=== PATIENT | female | born 1990 | race African-American/Black ===

== ENCOUNTER 2016-06-27 02:52 | Inpatient (IN) | payer OTHER ==
[2016-06-27 03:48] LABS: APPEARANCE,URINE CLEAR; BILIRUBIN,URINE NEGATIVE (NEGATIVE); GLUCOSE, URINE NEGATIVE (NEGATIVE); KETONES,URINE 20 mg/dL (NEGATIVE); LEUKOCYTE ESTERASE,URINE TRACE (NEGATIVE); NITRITE,URINE NEGATIVE (NEGATIVE); PROTEIN,URINE NEGATIVE (NEGATIVE); URINE SPECIFIC GRAVITY 1.013; UROBILINOGEN,URINE NEGATIVE mg/dL (<2.0)
[2016-06-27] MEDS ORDERED: PENICILLIN G-K 5 MILLION UNIT VIAL ONE (03:56)
[2016-06-27] MEDS ORDERED: PENICILLIN G POTASSIUM 5,000,000 UNIT in DEXTROSE 5%-WATER 100 ML IV ONE (04:00)
[2016-06-27] MEDS: RINGERS SOLUTION,LACTATED 1,000 ML IV PRN ×2 (04:18→05:32)
[2016-06-27 04:41] LABS: ABSOLUTE EOSINOPHILS # (AUTO) 0.1 10^3/uL (0.0-0.6); ABSOLUTE MONOCYTES (AUTO) 0.7 10^3/uL (0.1-1.4); ABSOLUTE NEUT (AUTO) 7.6 10^3/uL (1.7-8.2); BASOPHILS % (AUTO) 0.1 % (0-2); EOSINOPHILS % (AUTO) 1.5 % (0-6); HEMATOCRIT 33.2 % (36.0-47.0); HGB HCT DIFFERENCE -0.2; LYMPHOCYTES % (AUTO) 10.3 % (13-45); MEAN CORPUSCULAR HGB CONC 33.2 g/dL (32.0-36.0); MEAN CORPUSCULAR VOLUME 88 fl (80-97); MONOCYTES % (AUTO) 7.1 % (3-13); RED BLOOD COUNT 3.79 10^6/uL (3.72-5.28); RED CELL DISTRIBUTION WIDTH 13.8 % (11.5-14.0); WHITE BLOOD COUNT 9.3 10^3/uL (4.0-10.5)
[2016-06-27] MEDS ORDERED: LIDOCAINE 1% INJ-PF (10 MG/ML) 30 ML SDV ONE (05:12)
[2016-06-27] MEDS ORDERED: MISOPROSTOL 0.2 MG TABLET ONE (05:12)
[2016-06-27] MEDS ORDERED: OXYTOCIN/NORMAL SALINE 20 UNIT/1,000 ML RTUINJ ONE (05:13)
[2016-06-27 05:20] LABS: URINE BARBITURATES SCREEN NEGATIVE; URINE METHADONE SCREEN NEGATIVE; URINE OPIATES LOW NEGATIVE; URINE PHENCYCLIDINE SCREEN NEGATIVE
[2016-06-27] MEDS ORDERED: NALBUPHINE HCL INJ 10 MG/1 ML AMPULE ONE (05:29)
[2016-06-27] MEDS ORDERED: DIPHENHYDRAMINE HCL 25 MG CAPSULE PO PRN (06:01)
[2016-06-27] MEDS ORDERED: PSEUDOEPHEDRINE HCL 30 MG TABLET PO PRN (06:01)
[2016-06-27] MEDS ORDERED: MAGNESIUM HYDROXIDE SUSP 30 ML UDCUP PO PRN (06:01)
[2016-06-27] MEDS ORDERED: OXYTOCIN/NORMAL SALINE 1,000 ML IV PRN (06:01)
[2016-06-27] MEDS ORDERED: DIPH/PERTUSS(ACELL)/TETANUS VAC/PF 0.5 ML SYR (>=10YO) IM PRN (06:01)
[2016-06-27] MEDS ORDERED: GLYCERIN/WITCH HAZEL LEAF 1 EACH MED..PAD TP PRN (06:01)
[2016-06-27] MEDS ORDERED: PROMETHAZINE HCL 25 MG SUPP.RECT PR PRN (06:01)
[2016-06-27] MEDS ORDERED: MEASLES,MUMPS&RUBELLA VACC/PF 0.5 ML VIAL SUBCUT PRN (06:01)
[2016-06-27] MEDS ORDERED: ZOLPIDEM TARTRATE 5 MG TABLET PO PRN (06:01)
[2016-06-27] MEDS ORDERED: ACETAMINOPHEN WITH CODEINE #3 TABLET PO PRN ×2 (06:01)
[2016-06-27] MEDS ORDERED: PROMETHAZINE HCL 25 MG TABLET PO PRN (06:01)
[2016-06-27] MEDS ORDERED: PROMETHAZINE HCL INJ 25 MG/1 ML VIAL IV PRN (06:01)
[2016-06-27] MEDS ORDERED: DIBUCAINE 1% OINTMENT 28 GM TP PRN (06:01)
[2016-06-27] MEDS ORDERED: BENZOCAINE/MENTHOL AEROSOL SPRAY 56 ML TOP PRN (06:01)
[2016-06-27] MEDS ORDERED: ACETAMINOPHEN 650 MG SUPP.RECT PR PRN (06:01)
[2016-06-27] MEDS ORDERED: NA PHOS,M-B/NA PHOS,DI-BA (ADULT) 133 ML ENEMA PR PRN (06:01)
[2016-06-27] MEDS ORDERED: ACETAMINOPHEN WITH CODEINE #3 TABLET ONE (06:11)
[2016-06-27] MEDS ORDERED: PENICILLIN G POTASSIUM 2,500,000 UNIT in DEXTROSE 5%-WATER 50 ML IV SCH (08:01)
--- NOTE | 2016-06-27 08:01 | L&D Flow Sheet ---
LD Flowsheet Datetime Report Generated by CPN: 06/27/2016 08:00 Datetime: 06/27/2016 07:35 NBP Sys/Chen/Mean (mmHg): 117 (QS system process) : 61 (QS system process) : 82 (QS system process) Pulse: 75 (QS system process) Datetime: 06/27/2016 07:24 Communication Comments: report received from C. Wyocena, RN (Radha Abdias, RN) Datetime: 06/27/2016 07:20 NBP Sys/Chen/Mean (mmHg): 107 (QS system process) : 56 (QS system process) : 79 (QS system process) Pulse: 70 (QS system process) Datetime: 06/27/2016 07:16 Stage of : Recovery (Crystal Jenelle, RN) Datetime: 06/27/2016 07:05 NBP Sys/Chen/Mean (mmHg): 120 (QS system process) : 57 (QS system process) : 81 (QS system process) Pulse: 73 (QS system process) Datetime: 06/27/2016 07:00 Stage of : Recovery (Crystal Wyocena, RN) Datetime: 06/27/2016 06:50 NBP Sys/Chen/Mean (mmHg): 122 (QS system process) : 59 (QS system process) : 82 (QS system process) Pulse: 76 (QS system process) Datetime: 06/27/2016 06:45 Stage of : Recovery (Crystal Jenelle, RN) Temperature (F): 98.3 (Crystal Wyocena, RN) Temperature (C): 36.8 (QS system process) Temperature Route: Oral (Crystal Wyocena, RN) Pain Scale: 2 (Crystal Wyocena, RN) Pain Presence: Intermittent (Crystal Jenelle, RN) Pain Type: Burning (Crystal Wyocena, RN) Pain Location: Perineum (Crystal Wyocena, RN) Pain Goal: 1 (Crystal Wyocena, RN) Datetime: 06/27/2016 06:35 NBP Sys/Chen/Mean (mmHg): 129 (QS system process) : 66 (QS system process) : 92 (QS system process) Pulse: 84 (QS system process) Datetime: 06/27/2016 06:30 Stage of : Recovery (Crystal Jenelle, RN) Pain Scale: 2 (Crystal Wyocena, RN) Pain Presence: Intermittent (Crystal Wyocena, RN) Pain Type: Burning (Crystal Wyocena, RN) Pain Location: Perineum (Crystal Wyocena, RN) Pain Goal: 1 (Crystal Wyocena, RN) Pain Relief Measures: Pain Medication Given; Comfort Measures (Crystal Wyocena, RN) Datetime: 06/27/2016 06:23 NBP Sys/Chen/Mean (mmHg): 130 (QS system process) : 64 (QS system process) : 88 (QS system process) Pulse: 85 (QS system process) Datetime: 06/27/2016 06:20 NBP Sys/Chen/Mean (mmHg): 134 (QS system process) : 93 (QS system process) : 104 (QS system process) Pulse: 44 (QS system process) Datetime: 06/27/2016 06:15 Stage of : Recovery (Crystal Wyocena, RN) Datetime: 06/27/2016 06:11 Stage of : Recovery (Crystal Jenelle, RN) Analgesics/Sedatives: Tylenol (mg) @ (Annotations: 650 mg PO ) (Crystal Jenelle, RN) Datetime: 06/27/2016 06:08 Pain Scale: 4 (Crystal Wyocena, RN) Pain Presence: Intermittent (Crystal Wyocena, RN) Pain Type: Burning (Crystal Jenelle, RN) Pain Goal: 1 (Crystal Jenelle, RN) Pain Relief Measures: Comfort Measures (Crystal Wyocena, RN) Pain Coping: Requesting Pain Medication or Epidural (Crystal Wyocena, RN) Datetime: 06/27/2016 06:01 NBP Sys/Chen/Mean (mmHg): 130 (QS system process) : 68 (QS system process) : 92 (QS system process) Pulse: 86 (QS system process) Datetime: 06/27/2016 05:53 Stage of : Recovery (Crystal Jenelle, RN) NBP Sys/Chen/Mean (mmHg): 126 (QS system process) : 65 (QS system process) : 87 (QS system process) Pulse: 82 (QS system process) Pain Scale: 2 (Crystal Wyocena, RN) Pain Presence: Intermittent (Crystal Jenelle, RN) Pain Type: Burning; Ache (Crystal Wyocena, RN) Pain Location: Perineum (Crystal Wyocena, RN) Pain Goal: 1 (Crystal Wyocena, RN) Pain Relief Measures: Comfort Measures (Crystal Jenelle, RN) Datetime: 06/27/2016 05:48 Stage of : Labor (Crystal Jenelle, RN) Stage 2 Comments: Placenta delivery. (Crystal Wyocena, RN) Datetime: 06/27/2016 05:43 NBP Sys/Chen/Mean (mmHg): 122 (QS system process) : 62 (QS system process) : 84 (QS system process) Pulse: 68 (QS system process) LaborFlag: Labor (QS system process) Datetime: 06/27/2016 05:40 Stage of : Labor (Crystal Jenelle, RN) Stage 2 Comments: Vaginal delivery of viable baby girl. (Crystal Wyocena, RN) Datetime: 06/27/2016 05:33 NBP Sys/Chen/Mean (mmHg): 125 (QS system process) : 92 (QS system process) : 103 (QS system process) Pulse: 84 (QS system process) LaborFlag: Labor (QS system process) Datetime: 06/27/2016 05:32 Dilatation (cm): 9.5 (Carey Almanzar RN) Effacement (%): 100 (Carey Almanzar, RN) Station: 2 (Carey Almanzar RN) Exam by: Dr. Ponce (Carey Almanzar RN) Membrane Status: Ruptured (Carey Almanzar, RN) Membranes Rupture Method: Artificial (Carey Wyocena, RN) Amniotic Fluid Color: Clear (Crystal Jenelle, RN) Amniotic Fluid Amount: Small (Crystal Wyocena, RN) Datetime: 06/27/2016 05:31 Communication: Provider at Bedside (Crystal Jenelle, RN) Datetime: 06/27/2016 05:15 Monitor Mode: External; Palpation (Crystal Wyocena, RN) Frequency (min): 3-3.5 (Crystal Wyocena, RN) Quality: Moderate to Strong (Crystal Wyocena, RN) Duration (sec): 60 (Crystal Wyocena, RN) Duration Criteria: Less than Two 120 Second Contractions (Crystal Jenelle, RN) Resting Tone (Palpate): Relaxed (Crystal Wyocena, RN) Monitor Mode: External US (Crystal Jenelle, RN) FHR Baseline Rate : 145 (Crystal Wyocena, RN) Variability: Moderate 6-25 bpm (Crystal Jenelle, RN) Patient Position/Activity: Left Lateral (Crystal Wyocena, RN) Datetime: 06/27/2016 05:12 Temperature (F): 98.3 (Crystal Jenelle, RN) Temperature (C): 36.8 (QS system process) LaborFlag: Labor (QS system process) Datetime: 06/27/2016 05:06 Dilatation (cm): 6.5 (Carey Almanzar RN) Effacement (%): 90 (Carey Almanzar, ARUN) Station: -1 (Carey Almanzar RN) Exam by: Brandy Almanzar RN (Carey Almanzar RN) Vaginal Bleeding: None (Carey Almanzar RN) Cervix, Position: Anterior (Carey Almanzar, RN) Datetime: 06/27/2016 05:05 Nausea/Vomiting: Present (Carey Almanzar, ARUN) Datetime: 06/27/2016 05:02 NBP Sys/Chen/Mean (mmHg): 123 (QS system process) : 60 (QS system process) : 82 (QS system process) Pulse: 86 (QS system process) LaborFlag: Labor (QS system process) Datetime: 06/27/2016 05:00 Monitor Mode: External; Palpation (Crystal Wyocena, RN) Frequency (min): 3-4 (Crystal Jenelle, RN) Quality: Moderate to Strong (Crystal Wyocena, RN) Duration (sec): 50-80 (Crystal Jenelle, RN) Duration Criteria: Less than Two 120 Second Contractions (Crystal Jenelle, RN) Resting Tone (Palpate): Relaxed (Crystal Jenelle, RN) Monitor Mode: External US (Crystal Jenelle, RN) Monitor Interventions for FHR: Ultrasound Adjusted (Crystal Wyocena, RN) FHR Baseline Rate : 145 (Crystal Wyocena, RN) Variability: Moderate 6-25 bpm (Crystal Jenelle, RN) Patient Position/Activity: Left Lateral (Crystal Jenelle, RN) Datetime: 06/27/2016 04:45 Monitor Mode: External; Palpation (Crystal Wyocena, RN) Frequency (min): 3-5 (Crystal Wyocena, RN) Quality: Moderate to Strong (Crystal Wyocena, RN) Duration (sec): 50-90 (Crystal Jenelle, RN) Duration Criteria: Less than Two 120 Second Contractions (Crystal Jenelle, RN) Resting Tone (Palpate): Relaxed (Crystal Wyocena, RN) Monitor Mode: External US (Crystal Jenelle, RN) FHR Baseline Rate : 140 (Crystal Wyocena, RN) Variability: Moderate 6-25 bpm (Crystal Wyocena, RN) Accelerations: 15X15 (Crystal Wyocena, RN) Patient Position/Activity: Left Lateral (Crystal Jenlele, RN) Datetime: 06/27/2016 04:30 Monitor Mode: External; Palpation (Crystal Jenelle, RN) Frequency (min): 3-6 (Crystal Wyocena, RN) Quality: Moderate (Crystal Wyocena, RN) Duration (sec): 40-90 (Crystal Wyocena, RN) Duration Criteria: Less than Two 120 Second Contractions (Crystal Jenelle, RN) Resting Tone (Palpate): Relaxed (Crystal Wyocena, RN) Monitor Mode: External US (Crystal Wyocena, RN) FHR Baseline Rate : 140 (Crystal Wyocena, RN) Variability: Moderate 6-25 bpm (Carey Jenelle, RN) Accelerations: 10X10 (Carey Nicholasergrass, RN) Patient Position/Activity: Left Lateral; Semi-Fowlers (Carey Nicholasergrass, RN) I/O Interventions: Up to BR (Crystal Wyocena, RN) Datetime: 06/27/2016 04:09 Antibiotics: Start Antibiotics; Penicillin IV (Units) @ 5,000,000 (Carey Almanzar RN) IV/Blood Work: IV Started; IV Bolus Started (Carey Almanzar, RN) Patient Care Comments: 18 G L AC (Carey Almanzar, RN) Datetime: 06/27/2016 03:59 Frequency (min): 3.5-6 (Carey Nicholasergrass, RN) Duration (sec): 50-90 (Carey Nicholasergrass, RN) Monitor Mode: External US (Carey Almanzar, RN) Monitor Interventions for FHR: Ultrasound Adjusted (Carey Almanzar, RN) FHR Baseline Rate : 135 (Carey Jenelle, RN) Datetime: 06/27/2016 03:46 Stage of : Labor (Carey Almanzar RN) Strip Reviewed by: Brandy Almanzar RN (Carey Almanzar RN) Communication: RN at Bedside; RN Reviewed Strip; Provider Orders Received (Carey Almanzar RN) Provider Notified (Name): Fermin (Carey Almanzar RN) Notification Reason: Status Update; Status; Labor Status; Membrane Status; Uterine Activity (Carey Almanzar RN) Datetime: 06/27/2016 03:39 Dilatation (cm): 4.0 (Carey Almanzar RN) Effacement (%): 80 (Carey Almanzar RN) Station: -2 (Carey Almanzar RN) Exam by: Brandy Almanzar RN (Carey Almanzar RN) Vaginal Bleeding: None (Carey Almanzar RN) Cervix, Consistency: Soft (Carey Almanzar RN) Cervix, Position: Midposition (Carey Almanzar RN) Datetime: 06/27/2016 03:25 NBP Sys/Chen/Mean (mmHg): 123 (QS system process) : 69 (QS system process) : 90 (QS system process) Pulse: 76 (QS system process) Respirations: 18 (Crystal Jenelle, RN) LaborFlag: OB Triage (QS system process) Datetime: 06/27/2016 03:20 Monitor Mode: External; Palpation (Crystal Jenelle, RN) Frequency (min): 7 (Crystal Jenelle, RN) Quality: Moderate (Crystal Wyocena, RN) Duration (sec): 90 (Crystal Wyocena, RN) Duration Criteria: Less than Two 120 Second Contractions (Crystal Wyocena, RN) Resting Tone (Palpate): Relaxed (Crystal Jenelle, RN) Monitor Mode: External US (Crystal Jenelle, RN) FHR Baseline Rate : 140 (Crystal Wyocena, RN) Variability: Moderate 6-25 bpm (Crystal Wyocena, RN) Accelerations: 15X15 (Crystal Wyocena, RN) Patient Position/Activity: Left Lateral; Semi-Fowlers (Crystal Wyocena, RN) I/O Interventions: Clear Liquids Given (Carey Almanzar RN) Datetime: 06/27/2016 02:59 Stage of : OB Triage (Carey Almanzar RN) Monitor Interventions for UA: [place] Adjusted (Carey Almanzar RN) Frequency (min): Pt reports every minute (Carey Almanzar RN) Monitor Mode: External US (Carey Almanzar RN) Pain Scale: 3 (Carey Almanzar RN) Pain Presence: Intermittent (Carye Almanzar RN) Pain Type: Contraction (Carey Almanzar RN) Pain Location: Abdomen (Carey Almanzar RN) Pain Goal: 1 (Carey Almanzar RN) Pain Relief Measures: Comfort Measures (Carey Almanzar RN) Pain Coping: Talking Through Contractions (Carey Almanzar RN) Vaginal Bleeding: None (Carey Almanzar RN) Level of Consciousness: Fully Conscious (Carey Almanzar RN) DTR's/Clonus: DTRs 1+; No Clonus (Carey Almanzar RN) Headache: Denies (Carey Almanzar RN) Breath Sounds, Right: Clear and Equal (Carey Almanzar RN) Nausea/Vomiting: Denies (Carey Almanzar RN) RUQ Epigastric Pain: Denies (Carey Almanzar RN) Instructional Method: Verbal (Carey Almanzar RN) Plan of Care: Plan of Care Discussed (Carey Almanzar RN) Unit Routine: [place] to Room; Call Connor; Bed; Visiting Policy (Carye Almanzar RN) Labor/Induction: Labor Stages (Carey Almanzar RN) Pain Management: Comfort Measures (Carey Almanzar RN) PTL/PROM: Expected Outcomes (Carey Almanzar RN) LaborFlag: OB Triage (QS system process) Datetime: 06/27/2016 02:53 Membranes Ruptured Date/Time: 06/27/2016 05:32 (Carey Almanzar RN) Amniotic Fluid Odor: Normal (Carey Almanzar RN)
--- NOTE | 2016-06-27 08:11 | Delivery Summary ---
Del Sum A-C Datetime Report Generated by CPN: 06/27/2016 08:10 ADMISSION DATA Chief Complaint: Uterine Contractions Indication for Induction: Not Applicable Admission Impression: , Intrauterine Admit Provider Comments: efw 6-7 lbs DELIVERY PERSONNEL Delivery Doctor:: Silvia Christensen MD Labor and Delivery Nurse:: Carey Almanzar RN Labor and Delivery Nurse:: Ibis Ann RN Ob Gyn Physician Assistant/ENVELOPE PRESS OPERATOR: Kennedy Rowley, ENVELOPE PRESS OPERATOR MATERNAL INFORMATION Delivery Anesthesia: None Medications After Delivery: Pitocin Drip 20 Units/1000ml NSS Estimated Blood Loss (ml): 200 Maternal Complications: None LABOR SUMMARY EDC: 07/25/2016 00:00 No. Babies in Womb: 1 Attempted: No Labor Anesthesia: None LABOR INFORMATION Reason for Induction: Not Applicable Onset of Labor: 06/27/2016 01:30 Complete Dilatation: 06/27/2016 05:35 Oxytocin: N/A Group B Beta Strep: positive Antibiotics # of Doses: 1 Antibiotics Time of Last Dose: 0409 Name of Antibiotic Given: PCN Steroids Given: None Reason Steroids Not Administered: Not Applicable MEMBRANES Membranes Rupture Method: Artificial Rupture of Membranes: 06/27/2016 05:32 Length of Rupture (hr): 0.13 Amniotic Fluid Color: Clear Amniotic Fluid Amount: Small Amniotic Fluid Odor: Normal STAGES OF LABOR Stage 1 hr: 4 Stage 1 min: 5 Stage 2 hr: 0 Stage 2 min: 5 Stage 3 hr: 0 Stage 3 min: 8 Total Time in Labor hr: 4 Total Time in Labor min: 18 VAGINAL DELIVERY Episiotomy: None Laceration Extension: Second Degree Laceration Type: Perineal Laceration Repair: Yes Laceration Repair Note: repair with 3-0 chromic in usual fashion Sponge Count Correct: Yes; Vaginal Sweep Performed Sharps Count Correct: Yes CSECTION DELIVERY Primary Indication: N/A Secondary Indication: N/A CSection Incidence: Primary Labor: N/A Elective: N/A CSection Incision: N/A BABY A INFORMATION Infant Delivery Date/Time: 06/27/2016 05:40 Method of Delivery: Vaginal Born in Route : No : N/A Forceps: N/A Vacuum Extraction: N/A Shoulder Dystocia : No PRESENTATION/POSITION BABY A Presentation: Cephalic Cephalic Presentation: Vertex Vertex Position: Left Occipital Posterior Breech Presentation: N/A PLACENTA INFORMATION BABY A Placenta Delivery Time : 06/27/2016 05:48 Placenta Method of Delivery: Spontaneous Placenta Status: Delivered SCORES BABY A Heart Rate 1 min: >100 bpm Resp Effort 1 min: Slow, Irregular Reflex Irritability 1 min: Cough or Sneeze or Pulls Away Muscle Tone 1 min: Active Motion Color 1 min: Body [place], Extremities Blue Resuscitation Effort 1 min: N/A SCORE 1 MIN: 8 Heart Rate 5 min: >100 bpm Resp Effort 5 min: Good Cry Reflex Irritability 5 min: Cough or Sneeze or Pulls Away Muscle Tone 5 min: Active Motion Color 5 min: Body [place], Extremities Blue Resuscitation Effort 5 min: N/A SCORE 5 MIN: 9 INFANT INFORMATION BABY A Gestational Age at Delivery: 36.0 Gestational Status: Late - 34- 36.6 Weeks Infant Outcome : Liveborn Condition : Stable Sex: Female IDENTIFICATION BABY A Infant Verification Date/Time: 06/27/2016 05:59 ID Band Number: [id number] Mother's Name Verified: Yes RN Verifying Infant: R Marge, RNC Additional Verifying Personnel: J Field, RN WEIGHT/LENGTH BABY A Birthweight (gm): 2545 Infant Weight (lb): 5 Infant Weight (oz): 10 Length (in): 19.00 Length (cm): 48.26 CORD INFORMATION BABY A No. Cord Vessels: 3 Nuchal Cord : N/A Cord Blood Taken: Yes-For Storage (Mom's Blood type +) Infant Suction: None ASSESSMENT BABY A Complications: None Physical Findings at Delivery: Within Normal Limits Respirations: Appears Normal Skin to Skin: Yes Skin to Skin Time (min): 60 Infant Care By: J.Field, RN Transferred To: Remains with Mother BABY B INFORMATION : N/A SIGNATURES Signature: with User ID: [email or web address]
--- NOTE | 2016-06-27 08:22 | Admission Physical ---
Datetime Report Generated by CPN: 06/27/2016 08:22 CURRENT ADMISSION Chief Complaint: Uterine Contractions Indication for Induction: Not Applicable Admit Plan: Admit to Unit ALLERGIES Medication Allergies: Yes Medication Allergies: clarithromycin (02/23/2015) Latex: No Latex Allergies Food Allergies: NA Environmental Allergies: NA OBSTETRICAL HISTORY EDC: 07/25/2016 00:00 : 2 Para: 1 Term: 1 : 0 SAB: 0 IAB: 0 Ectopic: 0 Livin Cesareans: 0 VBACs: 0 Multiple Births: 0 Gestational Diabetes: No Rh Sensitization: No Incompetent Cervix: No CELIA: No Infertility: No ART Treatment: No Uterine Anomaly: No IUGR: No Hx Previous C/S: No Macrosomia: No Hx Loss/Stillborn: No PIH: No Hx : No Placenta Previa/Abruption: No Depression/PP Depression: No PTL/PROM: No Post Hemorrhage: No Current Procedures: Ultrasound Obstetrical History Comments: G1 NVD baby boy 2015 G2 Current SEE RECORDS Alcohol: No Marijuana : No Cocaine: No Other Illicit Drugs: No Cigarettes: Never Smoker. [id number] MEDICAL HISTORY Diabetes: No Blood Transfusion: No Pulmonary Disease (Asthma, TB): No Breast Disease: No Hypertension: No Manufacturing Automation Engineer Surgery: No Heart Disease: No Hosp/Surgery: No Autoimmune Disorder: No Anesthetic Complications: No Kidney Disease: No Abnormal Pap Smear: No Neuro/Epilepsy: No Psychiatric Disorders: No Other Medical Diseases: No Hepatitis/Liver Disease: No Significant Family History: No Varicosities/Phlebitis: No Trauma/Violence : No Thyroid Dysfunction: No INFECTIOUS HISTORY Gonorrhea: No Genital Herpes: No Chlamydia: No Tuberculosis: No Syphilis: No Hepatitis: No HIV/AIDS Exposure: No Rash or Viral Illness: No HPV: No PHYSICAL EXAM General: Normal HEENT: Normal Neurologic: Normal Thyroid: Normal Heart: Normal Lungs: Normal Breast: Deferred Back: Normal Abdomen: Normal Genitourinary Exam: Normal Extremities: Normal DTRs: Normal Pelvic Type: Adequate Vital Signs: Reviewed VAGINAL EXAM Dilatation: 4 Effacement: 80 Station: -2 FETUS A EGA: 36.0 Monitoring: External US FHR- Baseline: 150 Variability: Moderate 6-25bpm Accelerations: 10X10 FHR Category: Category I Admit Comment: efw 6-7 lbs PLANS FOR LABOR AND DELIVERY Labor and Delivery: None Feeding Preference: Breast Benefit of Breast Feed Discussed: Yes Circumcision: N/A INFORMED CONSENT Signature: with User ID: [email or web address]
[2016-06-27] MEDS: FERROUS SULFATE 325 MG TABLET PO SCH ×2 (09:49→17:34)
[2016-06-27] MEDS: SENNOSIDES/DOCUSATE 8.6-50 MG 1 EACH TABLET PO SCH (09:50)
[2016-06-27] MEDS: DOCUSATE SODIUM 100 MG CAPSULE PO SCH ×2 (09:50→17:34)
[2016-06-27] MEDS: PRENATAL VITAMIN W-O CA NO5/FE FUMARATE/FA CAPSULE PO SCH (09:50)
[2016-06-27] MEDS: FAMOTIDINE 20 MG TABLET PO SCH ×2 (09:50→21:45)
[2016-06-27] MEDS: IBUPROFEN 800 MG TABLET PO SCH ×2 (13:39→21:43)
--- NOTE | 2016-06-27 19:01 | L&D Flow Sheet ---
LD Flowsheet Datetime Report Generated by CPN: 06/27/2016 19:00 Datetime: 06/27/2016 08:05 NBP Sys/Chen/Mean (mmHg): 120 (QS system process) : 64 (QS system process) : 82 (QS system process) Pulse: 63 (QS system process) Datetime: 06/27/2016 07:35 NBP Sys/Chen/Mean (mmHg): 117 (QS system process) : 61 (QS system process) : 82 (QS system process) Pulse: 75 (QS system process) Datetime: 06/27/2016 07:25 Stage of : Recovery (Radha Calero RN) Respirations: 16 (Radha Calero RN) Temperature (F): 98.2 (Radha Calero RN) Temperature (C): 36.8 (QS system process) Temperature Route: Oral (Radha Calero RN) Pain Scale: 2 (Radha Calero RN) Pain Presence: None/Denies (Radha Calero RN) Pain Type: Dull (Radha Calero RN) Pain Location: Perineum (Radha Calero RN) Pain Goal: 1 (Radha Calero RN) Pain Relief Measures: Comfort Measures (Radha Calero RN) Datetime: 06/27/2016 07:24 Communication Comments: report received from Brandy Almanzar RN (Radha Calero RN) Datetime: 06/27/2016 07:20 NBP Sys/Chen/Mean (mmHg): 107 (QS system process) : 56 (QS system process) : 79 (QS system process) Pulse: 70 (QS system process) Datetime: 06/27/2016 07:16 Stage of : Recovery (Crystal Jenelle, RN) Datetime: 06/27/2016 07:05 NBP Sys/Chen/Mean (mmHg): 120 (QS system process) : 57 (QS system process) : 81 (QS system process) Pulse: 73 (QS system process) Datetime: 06/27/2016 07:00 Stage of : Recovery (Carey Almanzra RN)
[2016-06-28] MEDS: IBUPROFEN 800 MG TABLET PO SCH ×3 (05:53→23:50)
--- NOTE | 2016-06-28 06:01 | L&D General Admission ---
General Admit Datetime Report Generated by CPN: 06/28/2016 06:00 INFORMATION Patient Age: 26 (06/25/2016 12:09:QS system process) EDC: 07/25/2016 00:00 (06/27/2016 02:53:Carey Almanzar RN) : 2 (06/27/2016 02:53:Carey Almanzar RN) Para: 1 (06/27/2016 02:53:Fadia Bird RN) Term: 1 (06/27/2016 02:53:Fadia Bird RN) : 0 (06/27/2016 02:53:Fadia Bird RN) Spontaneous Abortions: 0 (06/27/2016 02:53:Fadia Bird RN) Induced Abortions: 0 (06/27/2016 02:53:Fadia Bird RN) Livin (06/27/2016 02:53:Fadia Bird RN) Cesareans: 0 (06/27/2016 02:53:Fadia Bird RN) VBACs: 0 (06/27/2016 02:53:Fadia Bird RN) Ectopic: 0 (06/27/2016 02:53:Fadia Bird RN) Multiple Births: 0 (06/27/2016 02:53:Fadia Bird RN) Baby, Number in Womb: 1 (06/27/2016 02:53:Fadia Bird RN) CARE Primary Legal In[facility]: [facility] (06/27/2016 02:53:Fadia Bird RN) Adequate Care: Yes (06/27/2016 02:53:Carey Almanzar RN) Height (in): 69 (06/27/2016 08:21:QS system process) ALLERGIES Medication Allergy: Yes (06/27/2016 02:53:Carey Almanzar RN) Medication Allergies: clarithromycin (02/23/2015) (06/25/2016 12:09:QS system process) Latex Allergy: No Latex Allergies (06/27/2016 02:53:Carey Almanzar RN) Food Allergies: NA (06/27/2016 02:53:Carey Almanzar RN) Environmental Allergies: NA (06/27/2016 02:53:Crystal ARUN Almanzar) COMMUNICATION Primary Language: Austrian (06/27/2016 02:53:Fadia Bird RN) DEMOGRAPHICS Address: [address] [place] [id number] (06/25/2016 12:09:QS system process) Zipcode: [address] (06/25/2016 12:09:QS system process) Home (06/25/2016 12:09:QS system process) N: [phone] (06/25/2016 12:09:QS system process) Next of Kin Name: LAURA PATEL (06/25/2016 12:09:QS system process) Next of Kin (06/25/2016 12:09:QS system process) Next of Kin Relationship: MO (06/25/2016 12:09:QS system process) Date of : 1990 (06/25/2016 12:09:QS system process) Marital Status: (06/25/2016 12:09:QS system process) Sex: Female (06/25/2016 12:09:QS system process) Race: (06/25/2016 12:09:QS system process) Ethnicity: Non- or (06/25/2016 12:09:QS system process) Moravian: Presybeterian (06/25/2016 12:09:QS system process) DRUG AND ALCOHOL USE Alcohol: No (06/27/2016 02:53:Carey Almanzar RN) Cigarettes: Never Smoker. [id number] (06/27/2016 02:53:Carey Almanzar RN) Marijuana: No (06/27/2016 02:53:Carey Almanzar RN) Cocaine: No (06/27/2016 02:53:Carey Almanzar RN) Other Illicit Drugs: No (06/27/2016 02:53:Carey lAmanzar RN) VACCINE HISTORY Influenza Vaccine: Yes (06/27/2016 02:53:Carey Almanzar RN) Influenza Date: 2017 (06/27/2016 02:53:Carey Almanzar RN) Pneumococcal Vaccine: No (06/27/2016 02:53:Carey Almanzar RN) Tetanus Vaccine: No (06/27/2016 02:53:Carey Almanzar RN) Tdap Vaccine: Yes (06/27/2016 02:53:Carey Almanzar RN) Tdap Date: 2015 (06/27/2016 02:53:Carey Almanzar RN) Hepatitis B Vaccine: Yes (06/27/2016 02:53:Carey Almanzar RN) Heel Seam Rubber: [facility] (06/27/2016 02:53:Carey Almanzar RN) Feeding Preference: Breast (06/27/2016 02:53:Carey Almanzar RN) Benefit of Breast Feed Discussed: Yes (06/27/2016 02:53:Carey Almanzar RN) Circumcision: N/A (06/27/2016 02:53:Carey Almanzar RN) Classes Attended: No (06/27/2016 02:53:Carey Almanzar RN) Tubal Ligation: No (06/27/2016 02:53:Carey Almanzar RN) Tubal Authorization Signed: N/A (06/27/2016 02:53:Carey Almanzar RN) Consent: N/A (06/27/2016 02:53:Carey Almanzar RN) Consent Signed: N/A (06/27/2016 02:53:Carey Almanzar RN) Plans for Labor and Delivery: None (06/27/2016 02:53:Carey Almanzar RN) Support Person: Thanh Díaz (06/27/2016 02:53:Carey Almanzar RN) Support Person Relationship: (06/27/2016 02:53:Carey Almanzar RN) Cultural/Spritual Practice: No (06/27/2016 02:53:Carey Almanzar RN) Spir/Cult Dietary Needs: No (06/27/2016 02:53:Carey Almanzar RN) LIVING SITUATION/DISCHARGE PLAN Living Arrangements: House (06/27/2016 02:53:Carey Almanzar RN) Adequate Access to:: Electric; Heat; Refrigeration; Plumbing/Running water; Phone; Transportation (06/27/2016 02:53:Carey Almanzar RN) WIC Program: No (06/27/2016 02:53:Carey Almanzar RN) Discharge Wire Worker Person: Thanh Díaz (06/27/2016 02:53:Carey Almanzar RN) Person to Help after Discharge: Thanh Díaz (06/27/2016 02:53:Carey Almanzar RN) Currently Using Commun Resources: No (06/27/2016 02:53:Carey Almanzar RN) Outside Agency/Clinical Scientist: No (06/27/2016 02:53:Carey Almanzar RN) Car Seat for Discharge: Yes (06/27/2016 02:53:Carey Almanzar RN) Adoption Requested: No (06/27/2016 02:53:Carey Almanzar RN) Pt Contact w/infant Post : N/A (06/27/2016 02:53:Carey Almanzar RN) LABS Blood Type: O Positive (06/27/2016 02:53:Fadia Bird RN) Antibody Screen: negative (06/27/2016 02:53:Fadia Bird RN) Hemoglobin: 11.0 L (06/27/2016 04:25:QS system process) Hematocrit: 36.0-47.0 % (06/28/2016 06:01:QS system process) MCV: 88 (06/27/2016 04:25:QS system process) Group Beta Strep: positive (06/27/2016 02:53:Fadia Bird RN) Gonorrhea: Negative (06/27/2016 02:53:Fadia Bird RN) Chlamydia: Negative (06/27/2016 02:53:Fadia Bird RN) RPR/VDRL: Nonreactive (06/27/2016 02:53:Fadia Bird RN) HIV Results: non-reactive (06/27/2016 02:53:Fadia Bird RN) Hepatitis B: Negative (06/27/2016 02:53:Fadia Bird RN) Rubella: Immune (06/27/2016 02:53:Fadia Bird RN) OB/PREVIOUS HISTORY Previous Procedures: Ultrasound (06/27/2016 02:53:Carey Almanzar RN) Current Procedures: Ultrasound (06/27/2016 02:53:Carey Almanzar RN) History of Previous : No (06/27/2016 02:53:Carey Almanzar RN) History of Gestational Diabetes: No (06/27/2016 02:53:Carey Almanzar RN) History of PIH: No (06/27/2016 02:53:Carey Almanzar RN) History of Incompetent Cervix: No (06/27/2016 02:53:Carey Almanzar RN) History of Placenta Previa/Abrup: No (06/27/2016 02:53:Carey Almanzar RN) History of Macrosomia: No (06/27/2016 02:53:Carey Almanzar RN) History of IUGR: No (06/27/2016 02:53:Carey Almanzar RN) History of Hemorrhage: No (06/27/2016 02:53:Carey Almanzar RN) History of Loss/Stillborn: No (06/27/2016 02:53:Carey Almanzar RN) History of : No (06/27/2016 02:53:Carey Almanzar RN) History of D (Rh) Sensitization: No (06/27/2016 02:53:Carey Almanzar RN) History Recurrent Loss/Stillborn: No (06/27/2016 02:53:Carey Almanzar RN) History Depression/PP Depression: No (06/27/2016 02:53:Carey Almanzar RN) History of Uterine Anomaly/CELIA: No (06/27/2016 02:53:Carey Almanzar RN) History of Infertility: No (06/27/2016 02:53:Carey Almanzar RN) History of ART Treatment: No (06/27/2016 02:53:Carey Almanzar RN) History of CELIA: No (06/27/2016 02:53:Carey Almanzar RN) Comments Obstetrical History: G1 NVD baby boy 2015 G2 Current (06/27/2016 02:53:Carey Almanzar RN) MEDICAL HISTORY Med Hx Diabetes: No (06/27/2016 02:53:Carey Almanzar RN) Med Hx Hypertension: No (06/27/2016 02:53:Carey Almanzar RN) Med Hx Heart Disease: No (06/27/2016 02:53:Carey Almanzar RN) Med Hx Autoimmune Disorder: No (06/27/2016 02:53:Carey Almanzar RN) Med Hx Kidney Disease/UTI: No (06/27/2016 02:53:Carey Almanzar RN) Med Hx Neurologic/Epilepsy: No (06/27/2016 02:53:Carey Almanzar RN) Med Hx Psychiatric Disorders: No (06/27/2016 02:53:Carey Almanzar RN) Med Hx Hepatitis/Liver Disease: No (06/27/2016 02:53:Carey Almanzar RN) Med Hx Varicosities/Phlebitis: No (06/27/2016 02:53:Carey Almanzar RN) Med Hx Thyroid Dysfunction: No (06/27/2016 02:53:Carey Almanzar RN) Med Hx Trauma/Violence: No (06/27/2016 02:53:Carey Almanzar RN) Med Hx Blood Transfusion: No (06/27/2016 02:53:Carey Almanzar RN) Med Hx Pulmonary (Asthma,TB): No (06/27/2016 02:53:Carey Almanzar RN) Med Hx Breast: No (06/27/2016 02:53:Carey Almanzar RN) Med Hx DIGITAL PROJECT COORDINATOR Surgery: No (06/27/2016 02:53:Carey Almanzar RN) Med Hx Hospitalization/Surgery: No (06/27/2016 02:53:Carey Almanzar RN) Med Hx Anesthetic Complications: No (06/27/2016 02:53:Carey Almanzar RN) Med Hx Abnormal Pap Smear: No (06/27/2016 02:53:Carey Almanzar RN) Other Medical Diseases: No (06/27/2016 02:53:Carey Almanzar RN) Med Hx Significant Family Hx: No (06/27/2016 02:53:Carey Almanzar RN) INFECTIOUS HISTORY Inf Hx Gonorrhea: No (06/27/2016 02:53:Carey Almanzar RN) Inf Hx Chlamydia: No (06/27/2016 02:53:Carey Almanzar RN) Inf Hx Syphilis: No (06/27/2016 02:53:Carey Almanzar RN) Inf Hx HIV/AIDS: No (06/27/2016 02:53:Carey Almanzar RN) Inf Hx Human Papilloma Virus: No (06/27/2016 02:53:Carey Almanzar RN) Inf Hx Pt/Partner Genital Herpes: No (06/27/2016 02:53:Carey Almanzar RN) Inf Hx Tuberculosis/Exposure: No (06/27/2016 02:53:Carey Almanzar RN) Inf Hx Hepatitis B,C: No (06/27/2016 02:53:Carey Almanzar RN) Inf Hx Rash or Viral Illness: No (06/27/2016 02:53:Carey Almanzar RN) GENETIC HISTORY Gen Hx Age >=35 at DACIA: No (06/27/2016 02:53:Carey Almanzar RN) Gen Hx Thalassemia: No (06/27/2016 02:53:Carey Almanzar RN) Gen Hx Congenital Heart Defect: No (06/27/2016 02:53:Carey Almanzar RN) Gen Hx Neural Tube Defect: No (06/27/2016 02:53:Carey Almanzar RN) Gen Hx Down's Syndrome: No (06/27/2016 02:53:Carey Almanzar RN) Gen Hx Mitul-Sachs: No (06/27/2016 02:53:Carey Almanzar RN) Gen Hx Arthur: No (06/27/2016 02:53:Carey Almanzar RN) Gen Hx Familial Dysautonomia: No (06/27/2016 02:53:Carey Almanzar RN) Gen Hx Sickle Cell Disease/Trait: No (06/27/2016 02:53:Carey Almanzar RN) Gen Hx Hemophilia/Blood Disorder: No (06/27/2016 02:53:Carey Almanzar RN) Gen Hx Muscular Dystrophy: No (06/27/2016 02:53:Carey Almanzar RN) Gen Hx Cystic Fibrosis: No (06/27/2016 02:53:Carey Almanzar RN) Gen Hx Huntingtons Chorea: No (06/27/2016 02:53:Carey Almanzar RN) Gen Hx Mental Retardation/Autism: No (06/27/2016 02:53:Carey Almanzar RN) Gen Hx Tested for Fragile X: No (06/27/2016 02:53:Carey Almanzar RN) Gen Hx Other Inher/Chromosomal: No (06/27/2016 02:53:Carey Almanzar RN) Gen Hx Maternal Metabolic DO: No (06/27/2016 02:53:Carey Almanzar RN) Gen Hx Pt Father or FOB Defect: No (06/27/2016 02:53:Carey Almanzar RN) Gen Hx Other Genetic History: No (06/27/2016 02:53:Carey Almanzar RN) Gen Hx Drugs/Meds since LMP: No (06/27/2016 02:53:Carey Almanzar RN)
--- NOTE | 2016-06-28 06:01 | L&D Current Admission ---
Current Admit Datetime Report Generated by CPN: 06/28/2016 06:00 ADMISSION INFORMATION Current Admit Date/Time: 06/27/2016 04:21 (06/27/2016 02:59:Carey Almanzar RN) Chief Complaint: Contractions (06/27/2016 02:59:Carey Almanzar RN) Medications During : Folic Acid; Vitamin (06/27/2016 02:59:Carey Almanzar RN) EGA per Dates: 36.0 (06/27/2016 02:59:QS system process) Records Available: Yes (06/27/2016 02:59:Carey Almanzar RN) General Admission Information: Reviewed (06/27/2016 02:59:Carey Almanzar RN) BELONGINGS/ADVANCED DIRECTIVES Valuables/Personal Effects: Purse/Wallet; Cell Phone; Eyeglasses (06/27/2016 02:59:Carey Almanzar RN) Disposition of Belongings: Kept with Patient (06/27/2016 02:59:Carey Almanzar RN) Advance Direct for Healthcare: No, and Wants No Information (06/27/2016 02:59:Carey Almanzar RN) Durable Power of Catalyst Operator Chief: No (06/27/2016 02:59:Carey Almanzar RN) Organ Donor: Yes (06/27/2016 02:59:Carey Almanzar RN) Pt Rights Information Given: Yes (06/27/2016 02:59:Carey Almanzar RN) Pt Understands Pt Rights: Yes (06/27/2016 02:59:Carey Almanzar RN) LEARNING ASSESSMENT Knowledge Level: Understands L_D Process; Understands Care Activities; Had Pre-Hospital Education; Understands Diagnosis (06/27/2016 02:59:Carey Almanzar RN) Barriers to Learning: None (06/27/2016 02:59:Carey Almanzar RN) Learning Readiness: Motivated (06/27/2016 02:59:Carey Almanzar RN) Learns Best By: 1 to 1 Instruction (06/27/2016 02:59:Carey Almanzar RN) Learning Needs: Labor and Delivery Process; Symptoms to Report (06/27/2016 02:59:Carey Almanzar RN) DOMESTIC VIOLANCE SCREENING Dom Viol Threatened/Hurt: No (06/27/2016 02:59:Carey Almanzar RN) Hx of Abuse/Neglect past 2yrs: No (06/27/2016 02:59:Carey Almanzar RN) Feel Unsafe Going Home: No (06/27/2016 02:59:Carey Almanzar RN) Addt'l Observ Indicating Abuse: No (06/27/2016 02:59:Carey Almanzar RN) Reason Unable to Complete Screen: N/A, Screen Completed (06/27/2016 02:59:Carey Almanzar RN) Considered Personal Harm/Suicide: No (06/27/2016 02:59:Carey Almanzar RN) NUTRITIONAL/FUNCTIONAL SCREENING Problem with Appetite >5 Days: No (06/27/2016 02:59:Carey Almanzar RN) Chew/Swallow Difficulties: No (06/27/2016 02:59:Carey Almanzar RN) Inappropriate Wt Gain/Loss: No (06/27/2016 02:59:Carey Almanzar RN) Presence Skin Breakdown/Ulcer: No (06/27/2016 02:59:Carey Almanzar RN) Special Diet: No (06/27/2016 02:59:Carey Almanzar RN) Pt Requests Office Machine Mechanic Visit: No (06/27/2016 02:59:Carey Almanzar RN) Hx of Any of the Following?: N/A (06/27/2016 02:59:Carey Almanzar RN) New Diagnosis of: N/A (06/27/2016 02:59:Carey Almanzar RN) Requires Assist w/Ambulation: No (06/27/2016 02:59:Carey Almanzar RN) Uses Assist Device to Ambulate: No (06/27/2016 02:59:Carey Almanzar RN) Pt Requires Help w/ADL's: No (06/27/2016 02:59:Carey Almanzar RN)
--- NOTE | 2016-06-28 06:16 | L&D Care Plan ---
LD CARE PLANS Datetime Report Generated by CPN: 06/28/2016 06:15 Datetime: 06/27/2016 04:35 Pain State: Risk For (Carey Almanzar RN) Related To: Labor and Delivery Process; Complication(s) of ; Treatment and Procedures; Post (Carey Almanzar RN) Goal(s): Patients Pain will be Assessed and Managed; Patient will Verbalize Adequate Relief of Pain or the Ability to [place] with Current Pain (Carey Almanzar RN) Interventions: Assess Pain Severity on Scale of 0 (None) to 5 (Severe); Assess Type, Location and Intensity of Pain Each Time Client Reports Discomfort and Notify Provider if Unusal Pain Develops; Encourage Proper Breathing and Relaxation Techniques; Offer Alternatives Such as Repositioning, Calm Environment, Massages, Diversional Activities, Ice Pack, Splinting, and Ambulation; Administer Analgesics as Ordered; Assist with Epidural Placement as Appropriate; Evaluate Therapeutic Effectiveness of Medication and Treatments (Carey Almanzar RN) Outcome: Patient will Report Absence or Relief of Pain Consistent with Established Pain Goal (Carey Almanzar RN) Status: Ongoing (Carey Almanzar RN) Outcome: Patient will have a Decrease in Signs and Symptoms of Discomfort (Carey Almanzar RN) Status: Ongoing (Carey Almanzar RN) Outcome: Pain will be Controlled During Procedures (Carey Almanzar RN) Status: Ongoing (Carey Almanzar RN) Anxiety State: Risk For (Carey Almanzar RN) Related To: Labor and Delivery Process; Surgical Procedure; Perceived or Actual Threat to ; Fear of Unknown; Situational Crisis; Medical Interventions; Significant Life Event (Carey Almanzar RN) Goal(s): Patient will have Decreased Anxiety and be able to Function at Acceptable Levels (Carey Almanzar RN) Interventions: Assess Verbal and Nonverbal Behavioral Indicators of Anxiety; Assist Patient to Identify and Verbalize Symptoms of Anxiety; Identify and Demonstrate Techniques to Control Anxiety; Assist Patient with Coping Mechanisms to Manage Anxiety; Provide Theraputic Touch for the Patient; Explain to Patient, Using a Calm Reassuring Approach and Nonmedical Terms, All Activities, Procedures, and Concerns; Instruct Patient and Family about Post Discharge Care, Limitations, Symptoms to Report and Resources Available (Carey Almanzar RN) Outcome: Patient will Identify, Verbalize and Demonstrate Techniques to Control Anxiety (Carey Almanzar RN) Status: Ongoing (Carey Almanzar RN) Outcome: Patient's Posture, Facial Expressions, Gestures and Activity Level will Reflect Decreased Anxiety (Carey Almanzar RN) Status: Ongoing (Carey Almanzar RN) Outcome: Patient will Verbalize a Sense of Control and/or Acceptance of the Situation (Carey Almanzar RN) Status: Ongoing (Carey Almanzar RN) Outcome: Patient will Identify and Utilize Support Person (Carey Almanzar RN) Status: Ongoing (Carey Almanzar RN) Knowledge Deficit State: Risk For (Carey Almanzar RN) Related To: Labor and Delivery Process; Surgical Procedures; Treatment and Procedures; Impending Alterations in Family Dynamics; Feeding and Infant Care; Community Resources and Available Support Mechanisms (Carey Almanzar RN) Goal(s): Patient will Accurately Verbalize Understanding of Plan of Care and Treatment; Patient and Family will Accurately Verbalize Understanding of the Disease Process (Carey Almanzar RN) Interventions: Assess Motivation and Willingness of Patient/Family to Learn; Assess Preferred Learning Mode: One to One Instruction, Reading, Videos, Group Discussion or Demonstration; Assess Barriers to Learning: Pain, Emotional State, Language Barrier, Cognitive Impairment, Visual or Hearing Deficits; Assess Patient and Family Knowledge of Disease Process, Medications and Treatment; Discuss Therapy and/or Treatment Options, Describe Rationale Behind Management, Therapy and Treatment Recommendations; Instruct Patient and Family on Signs and Symptoms to Report; Instruct Patient and Family on Medication Effects and Side Effects; Provide Appropriate and Timely Education Using Multiple Techniques; Provide Patient and Family with Support Group Information and Resources; Give Clear and Thorough Explanations and Demonstrations (Carey Almanzar RN) Outcome: Patient and Family will Verbalize Understanding of Condition, Treatment and Signs and Symptoms to Report (Carey Almanzar RN) Status: Ongoing (Carey Almanzar RN) Outcome: Patient will Identify Perceived Learning Needs and Express Motivation to Learn (Carey Almanzar RN) Status: Ongoing (Carey Almanzar RN) Outcome: Patient will Verbalize Understanding of Desired Content, and/or Performs Desired Skill Prior to Discharge (Carey Almanzar RN) Status: Ongoing (Carey Almanzar RN) Infection State: Risk For (Carey Almanzar RN) Related To: Surgical Procedures; Prolonged Labor or Induction; Premature/Prolonged Rupture of Membranes; Invasive Procedures; Altered Tissue Integrity (Carey Almanzar RN) Goal(s): The Patient will be Free of Infection, Vital Signs Stable and Lab Work within Normal Parameters (Carey Almanzar RN) Interventions: Instruct and Reinforce Proper Handwashing, Hygiene, and Care Techniques to Patient and Family; Monitor Vital Signs; Monitor Patient for the Following Signs of Infection: Fever, Abdominal Tenderness, Unusual Discharge; Monitor Aminiotic Fluid, Urine and Lochia for Color and Odor; Observe Wounds, Incisions and Invasive Line Sites for Redness, Drainage and Edema; Assess IV Sites per Hospital Policy; Monitor Lab and Test Results and Notify Provider of Abnormal Findings; Assess Nutritional Status and Promote Good Nutrition (Carey Almanzar RN) Outcome: Patient will Remain Free of Infection (Carey Almanzar RN) Status: Ongoing (Carey Almanzar RN) Outcome: Infection will be Recognized Early to Allow for Prompt Treatment (Carey Almanzar RN) Status: Ongoing (Carey Almanzar RN) Outcome: Patient will have Vital Signs Within Expected Range (Carey Almanzar RN) Status: Ongoing (Carey Almanzar RN)
[2016-06-28 07:49] LABS: HEMATOCRIT 32.9 % (36.0-47.0); HGB HCT DIFFERENCE 0.1; MEAN CORPUSCULAR HEMOGLOBIN 29.3 pg (27.0-33.4); MEAN CORPUSCULAR HGB CONC 33.3 g/dL (32.0-36.0); MEAN CORPUSCULAR VOLUME 88 fl (80-97); RED BLOOD COUNT 3.75 10^6/uL (3.72-5.28); RED CELL DISTRIBUTION WIDTH 14.3 % (11.5-14.0); WHITE BLOOD COUNT 8.7 10^3/uL (4.0-10.5)
[2016-06-28] MEDS: PRENATAL VITAMIN W-O CA NO5/FE FUMARATE/FA CAPSULE PO SCH (09:17)
[2016-06-28] MEDS: DOCUSATE SODIUM 100 MG CAPSULE PO SCH ×2 (09:18→17:48)
[2016-06-28] MEDS: FERROUS SULFATE 325 MG TABLET PO SCH ×2 (09:18→17:48)
[2016-06-28] MEDS: SENNOSIDES/DOCUSATE 8.6-50 MG 1 EACH TABLET PO SCH (09:18)
[2016-06-28] MEDS: FAMOTIDINE 20 MG TABLET PO SCH ×2 (09:18→23:50)
--- NOTE | 2016-06-28 13:49 | PDOC PROGRESS REPORT ---
Subjective-OB Subjective: Post Delivery Day: 1 26 year old. Denies any needs at this time, voiding without difficulty, lochia stable, pain well controlled. Physical Exam (OB) Vital Signs: Temp Pulse Resp BP Pulse Ox 97.7 F 57 L 16 114/69 100 06/28/16 08:11 06/28/16 08:11 06/28/16 08:11 06/28/16 08:11 06/28/16 08:11 Intake & Output 06/27/16 06/28/16 06/29/16 06:59 06:59 06:59 Intake Total 500 Balance 500 Weight 70.1 kg - Lochia Lochia Amount: Scant < 10 ml Lochia Color: Rubra/Red - Abdomen Description: Tender, Soft Hernia Present: No Fundal Description: Firm, Midline Fundal Height: u/u - u/2 Objective-Diagnostic Laboratory: 06/28/16 07:35 06/28/16 07:35 WBC 8.7 RBC 3.75 Hgb 11.0 L Hct 32.9 L MCV 88 MCH 29.3 MCHC 33.3 RDW 14.3 H Plt Count 182 Assessment and Plan(PN) - Assessment and Plan (1) Vaginal delivery Is this a current diagnosis for this admission?: YesPlan: routine pp care - Time Spent with Patient Time with patient: Less than 15 minutes Critical Time spent with patient: Less than 15 minutes Medications reviewed and adjusted accordingly: Yes - Disposition Anticipated Discharge: Home with Homehealth Within: within 24 hours
[2016-06-29] MEDS: IBUPROFEN 800 MG TABLET PO SCH ×2 (05:02→13:21)
[2016-06-29 08:43] VITALS: BP 115/71
[2016-06-29] MEDS: FERROUS SULFATE 325 MG TABLET PO SCH (10:12)
[2016-06-29] MEDS: DOCUSATE SODIUM 100 MG CAPSULE PO SCH (10:12)
[2016-06-29] MEDS: FAMOTIDINE 20 MG TABLET PO SCH (10:12)
[2016-06-29] MEDS: SENNOSIDES/DOCUSATE 8.6-50 MG 1 EACH TABLET PO SCH (10:12)
[2016-06-29] MEDS: PRENATAL VITAMIN W-O CA NO5/FE FUMARATE/FA CAPSULE PO SCH (10:14)
--- NOTE | 2016-06-29 12:24 | PDOC DISCHARGE SUMMARY ---
Final Diagnosis Discharge Date: 06/29/16 - Final Diagnosis (1) Vaginal delivery Is this a current diagnosis for this admission?: Yes Discharge Data - Discharge Medication Home Medications: Vit#96/Ferrous Fum/FA [ Tablet] 1 each PO DAILY 02/23/15 Ferrous Sulfate [Iron] 325 mg PO DAILY 06/27/16 Docusate Sodium [Colace 100 mg Capsule] 100 mg PO BID #60 capsule 06/29/16 Ibuprofen [Motrin 800 mg Tablet] 800 mg PO Q8 #60 tablet 06/29/16 Gestational Age: 36.0 Reason(s) for Admission: Onset of Labor, Group B Strep Positive Procedures: NST Intrapartum Procedure(s): Spontaneous Vaginal Delivery Complication(s): Laceration-Vaginal Laceration-Degree: 1st - Data Baby 1 Female at 1 minute: 8 at 5 minutes: 9 Weight: 2545 kg Home with Mother: Yes Complications: Yes - - Diagnosis Test Laboratory: Temp Pulse Resp BP Pulse Ox 97.5 F 53 L 16 115/71 100 06/29/16 09:00 06/29/16 09:00 06/29/16 09:00 06/29/16 09:00 06/29/16 09:00 06/27/16 06/27/16 06/28/16 03:00 04:25 07:35 RBC 3.79 3.75 Hgb 11.0 L 11.0 L Hct 33.2 L 32.9 L Urine Opiates Screen NEGATIVE - Discharge information/Instructions Discharge Activity: Activity As Tolerated, Balance Activity w/Rest, No Lifting Over 10 Pounds, No Lifting/Push/Pulling, Pelvic Rest, Slowly Increase Activity Discharge Diet: Regular Disposition: HOME, SELF-CARE Follow up with: [facility] in: 4, Weeks
== END 2016-06-29 13:55 | disposition home or self-care (01) | DRG 775 ==
LOC: LC 02:52 → LR 03:46 → 2S 08:21
PROVIDERS: ADMIT Obstetrics & Gynecology; ATTEND Obstetrics & Gynecology
PROC: 10E0XZZ Delivery of Products of Conception, External Approach (ICD-10-PCS; principal; 2016-06-27)
PROC: 0KQM0ZZ Repair Perineum Muscle, Open Approach (ICD-10-PCS; 2016-06-27)
PROC: 10907ZC Drainage of Amniotic Fluid, Therapeutic from Products of Conception, Via Natural or Artificial Opening (ICD-10-PCS; 2016-06-27)
PROC: 4A1HXCZ Monitoring of Products of Conception, Cardiac Rate, External Approach (ICD-10-PCS; 2016-06-27)
DX: O60.14X0 Preterm labor third trimester with preterm delivery third trimester, not applicable or unspecified (principal); O99.824 Streptococcus B carrier state complicating childbirth; O70.1 Second degree perineal laceration during delivery; Z88.3 Allergy status to other anti-infective agents; Z3A.36 36 weeks gestation of pregnancy; Z37.0 Single live birth
CPT/HCPCS: 36415; 80307; 81001; 85025; 85027; 86592; 86850; 86900; 86901; J2300; J2540; J2590; J3490

== ENCOUNTER 2018-08-03 07:07 | Day surgery (SDC) | payer OTHER ==
[2018-08-03 07:59] LABS: APPEARANCE,URINE CLOUDY; BILIRUBIN,URINE NEGATIVE (NEGATIVE); COLOR,URINE YELLOW; GLUCOSE, URINE NEGATIVE (NEGATIVE); KETONES,URINE NEGATIVE (NEGATIVE); LEUKOCYTE ESTERASE,URINE MODERATE (NEGATIVE); NITRITE,URINE NEGATIVE (NEGATIVE); PROTEIN,URINE NEGATIVE (NEGATIVE); URINE SPECIFIC GRAVITY 1.029
[2018-08-03 08:34] LABS: HEMATOCRIT 35.6 % (36.0-47.0); HEMOGLOBIN 11.9 g/dL (12.0-15.5); MEAN CORPUSCULAR HGB CONC 33.5 g/dL (32.0-36.0); MEAN CORPUSCULAR VOLUME 87 fl (80-97); PLATELET COUNT 256 10^3/uL (150-450); RED BLOOD COUNT 4.12 10^6/uL (3.72-5.28); RED CELL DISTRIBUTION WIDTH 13.6 % (11.5-14.0); WHITE BLOOD COUNT 6.4 10^3/uL (4.0-10.5)
[2018-08-03] MEDS ORDERED: MIDAZOLAM 2 MG/2 ML INJ ONE (09:26)
[2018-08-03] MEDS ORDERED: FENTANYL CITRATE INJ/PF 100 MCG/2 ML AMPUL ONE ×2 (09:26→10:39)
[2018-08-03] MEDS ORDERED: ONDANSETRON HCL INJ/PF 4 MG/2 ML SDV ONE (09:26)
[2018-08-03] MEDS ORDERED: PROPOFOL INJ 200 MG/20 ML VIAL IV ONE (09:26)
[2018-08-03] MEDS ORDERED: ACETAMINOPHEN 0 MG/0 ML RTUPB IV ONE (09:26)
[2018-08-03] MEDS ORDERED: PROMETHAZINE HCL INJ 25 MG/1 ML VIAL ONE (09:26)
[2018-08-03] MEDS ORDERED: FENTANYL CITRATE INJ/PF 100 MCG/2 ML AMPUL IV PRN ×3 (09:44)
[2018-08-03] MEDS ORDERED: MEPERIDINE HCL/PF INJ 25 MG/1 ML DISP.SYRIN IV PRN (09:44)
[2018-08-03] MEDS ORDERED: DIPHENHYDRAMINE HCL 50 MG/ML VIAL IV PRN (09:44)
[2018-08-03] MEDS ORDERED: MORPHINE SULFATE 10 MG/ML INJ IV PRN (09:44)
[2018-08-03] MEDS ORDERED: PROMETHAZINE HCL INJ 25 MG/1 ML VIAL IV PRN ×2 (09:44)
--- NOTE | 2018-08-03 10:28 | OPERATIVE REPORT E ---
Operative Report NAME: MERY GOOD : 1990 AGE: 28Y DATE OF SURGERY: 08/03/2018 ROOM: PREOPERATIVE DIAGNOSIS: Missed AB. POSTOPERATIVE DIAGNOSIS: Missed AB. OPERATION: Suction dilatation and curettage. SURGEON: MAYANK NELSON M.D. ANESTHESIA: Saul Luna M.D. with LMA. FINDINGS: Uterine sounded to 12 cm. Significant products of conception. COMPLICATIONS: None. ESTIMATED BLOOD LOSS: 100 mL. SPECIMENS REMOVED: Products of conception. PROCEDURE IN DETAIL: The patient was taken to the operating room, prepared and draped in a normal sterile fashion in the dorsal lithotomy position. Under sterile conditions the in-and-out cath was performed of approximately 5 mL of clear urine. Sterile speculum was placed into the vagina. The cervix was grasped on the anterior lip with a single-tooth tenaculum and the uterus was sounded using a uterine sound to 12 cm. The sound was removed and the cervix was dilated to accommodate an 8 mm curved curette, which was introduced without difficulty and suction curettage was performed without incident. Copious tissue was obtained consistent with products of conception. Several passes were made with the suction curette until no further tissue was obtained, and a sharp curettage was then performed with good grit felt in 360 degrees of the uterus. One more pass with the suction curette reassured that uterine contents were emptied and the instruments were then removed. Sponge, lap, and needle counts were correct x2, and the patient was taken to recovery in stable condition. DICTATING PHYSICIAN: MAYANK NELSON M.D. [id number] PHY#: [id number] ID: [id number] JOB#: [id number] ACCT: [id number] cc:MAYANK NELSON M.D. >
[2018-08-03] MEDS ORDERED: RINGERS SOLUTION,LACTATED 1,000 ML IV PRN (10:48)
[2018-08-03] MEDS ORDERED: MORPHINE SULFATE 10 MG/ML INJ IM PRN (10:49)
[2018-08-03] MEDS ORDERED: IBUPROFEN 800 MG TABLET PO PRN (10:49)
[2018-08-03] MEDS ORDERED: OXYCODONE-ACETAMINOPHEN 5-325 MG TABLET PO PRN ×2 (10:50)
[2018-08-03 12:25] VITALS: BP 113/72
== END 2018-08-03 12:27 | disposition home or self-care (01) ==
LOC: OROUT 07:07
PROVIDERS: ATTEND Obstetrics & Gynecology
DX: O02.1 Missed abortion (principal)
CPT/HCPCS: 36415; 85027; 81001; 88305 ×2; 59820; J2250; J3010; J2550; J2405; J2704; 1965; J0131